=== PATIENT | female | born 1965 | race Caucasian/White ===

== ENCOUNTER → 2023-12-18 18:16 | Outpatient (REF) | payer BC, SELFPAY | LOC: MRI 18:16 | PROVIDERS: ATTENDING PHYSICIAN Internal Medicine Hematology & Oncology; FAMILY PHYSICIAN Internal Medicine | DX: D68.9 Coagulation defect, unspecified (principal); C80.0 Disseminated malignant neoplasm, unspecified; D53.9 Nutritional anemia, unspecified; R97.8 Other abnormal tumor markers | CPT/HCPCS: 70553; A9575 ==

== ENCOUNTER → 2024-01-01 18:09 | Outpatient (REF) | payer BC, SELFPAY | LOC: PAVMRI 18:09 | PROVIDERS: ATTENDING PHYSICIAN Specialist; FAMILY PHYSICIAN Internal Medicine | DX: M54.12 Radiculopathy, cervical region (principal) | CPT/HCPCS: 72141 ==

== ENCOUNTER → 2024-04-29 08:45 | Outpatient (REF) | payer BC, SELFPAY | LOC: HWWDC 08:45 | PROVIDERS: ATTENDING PHYSICIAN Internal Medicine | DX: Z12.31 Encounter for screening mammogram for malignant neoplasm of breast (principal) | CPT/HCPCS: 77063; 77067 ==

== ENCOUNTER → 2024-05-05 08:12 | Outpatient (REF) | payer BC, SELFPAY | LOC: RCS 08:12 | PROVIDERS: ATTENDING PHYSICIAN Internal Medicine | DX: R03.0 Elevated blood-pressure reading, without diagnosis of hypertension (principal); R00.2 Palpitations | CPT/HCPCS: 93225; 93226 ==

== ENCOUNTER → 2024-05-15 09:52 | Outpatient (REF) | payer BC, SELFPAY | LOC: HWRAD 09:52 | PROVIDERS: ATTENDING PHYSICIAN Internal Medicine Hematology & Oncology; FAMILY PHYSICIAN Internal Medicine | DX: E83.50 Unspecified disorder of calcium metabolism (principal); R97.8 Other abnormal tumor markers; D53.9 Nutritional anemia, unspecified; C80.0 Disseminated malignant neoplasm, unspecified; C34.11 Malignant neoplasm of upper lobe, right bronchus or lung; R11.0 Nausea; E86.0 Dehydration; D68.9 Coagulation defect, unspecified | CPT/HCPCS: 70491; 71260; 74177; Q9967 ==

== ENCOUNTER → 2024-05-29 07:16 | Outpatient (REF) | payer BC, SELFPAY | LOC: HWRCS 07:16 | PROVIDERS: ATTENDING PHYSICIAN Internal Medicine | DX: Z12.39 Encounter for other screening for malignant neoplasm of breast (principal) | CPT/HCPCS: 93306 ==

== ENCOUNTER → 2024-09-08 09:08 | Outpatient (REF) | payer BC, SELFPAY | LOC: HWRAD 09:08 | PROVIDERS: ATTENDING PHYSICIAN Internal Medicine Hematology & Oncology; FAMILY PHYSICIAN Internal Medicine | DX: E83.50 Unspecified disorder of calcium metabolism (principal); R97.8 Other abnormal tumor markers; D53.9 Nutritional anemia, unspecified; C80.0 Disseminated malignant neoplasm, unspecified; D68.9 Coagulation defect, unspecified; C34.11 Malignant neoplasm of upper lobe, right bronchus or lung; R11.0 Nausea; E86.0 Dehydration | CPT/HCPCS: 70491; 71260; 74177; Q9967 ==

== ENCOUNTER → 2024-12-18 07:15 | Outpatient (REF) | payer BC, SELFPAY | LOC: RAD 07:15 | PROVIDERS: ATTENDING PHYSICIAN Internal Medicine Hematology & Oncology; FAMILY PHYSICIAN Internal Medicine; REFERRING PHYSICIAN Internal Medicine Hematology & Oncology | DX: C80.0 Disseminated malignant neoplasm, unspecified (principal); D53.9 Nutritional anemia, unspecified; D68.9 Coagulation defect, unspecified; E83.50 Unspecified disorder of calcium metabolism; R97.8 Other abnormal tumor markers; C34.11 Malignant neoplasm of upper lobe, right bronchus or lung; E86.0 Dehydration; R11.0 Nausea | CPT/HCPCS: 70491; 71260; 74177; Q9967 ==

== ENCOUNTER → 2024-12-25 17:03 | Outpatient (REF) | payer BC, SELFPAY | LOC: MRI 17:03 | PROVIDERS: ATTENDING PHYSICIAN Internal Medicine Hematology & Oncology; FAMILY PHYSICIAN Internal Medicine | DX: C34.11 Malignant neoplasm of upper lobe, right bronchus or lung (principal) | CPT/HCPCS: 70553; A9575 ==

== ENCOUNTER → 2025-01-08 07:10 | Outpatient (REF) | payer BC, SELFPAY | LOC: RCS 07:10 | PROVIDERS: ATTENDING PHYSICIAN Internal Medicine Cardiovascular Disease; FAMILY PHYSICIAN Internal Medicine | DX: R00.2 Palpitations (principal) | CPT/HCPCS: 93306; 93356 ==

== ENCOUNTER → 2025-02-26 12:39 | Outpatient (REF) | payer BC, SELFPAY | LOC: PET 12:39 | PROVIDERS: ATTENDING PHYSICIAN Internal Medicine Hematology & Oncology | DX: C34.11 Malignant neoplasm of upper lobe, right bronchus or lung (principal) | CPT/HCPCS: 78815; A9552 ==

== ENCOUNTER → 2025-04-30 08:44 | Outpatient (REF) | payer BC, SELFPAY | LOC: RAD 08:44 | PROVIDERS: ATTENDING PHYSICIAN Internal Medicine Hematology & Oncology; FAMILY PHYSICIAN Internal Medicine | DX: C34.90 Malignant neoplasm of unspecified part of unspecified bronchus or lung (principal); C77.0 Secondary and unspecified malignant neoplasm of lymph nodes of head, face and neck | CPT/HCPCS: 70492; 71270; 74178; Q9967 ==

== ENCOUNTER → 2025-05-05 16:48 | Outpatient (REF) | payer BC, SELFPAY | LOC: MRI 3T 16:48 | PROVIDERS: ATTENDING PHYSICIAN Internal Medicine Hematology & Oncology; FAMILY PHYSICIAN Internal Medicine | DX: C34.90 Malignant neoplasm of unspecified part of unspecified bronchus or lung (principal); R97.8 Other abnormal tumor markers; C34.11 Malignant neoplasm of upper lobe, right bronchus or lung; C77.0 Secondary and unspecified malignant neoplasm of lymph nodes of head, face and neck; N63.21 Unspecified lump in the left breast, upper outer quadrant | CPT/HCPCS: 76642; 77049; 77062; 77066; A9585 ==

== ENCOUNTER → 2025-05-21 11:35 | Outpatient (REF) | payer BC, SELFPAY | LOC: MRI 3T 11:35 | PROVIDERS: ATTENDING PHYSICIAN Internal Medicine Hematology & Oncology; FAMILY PHYSICIAN Internal Medicine | DX: C34.11 Malignant neoplasm of upper lobe, right bronchus or lung (principal); R97.8 Other abnormal tumor markers; D53.9 Nutritional anemia, unspecified; C80.0 Disseminated malignant neoplasm, unspecified; D68.9 Coagulation defect, unspecified; E83.50 Unspecified disorder of calcium metabolism; R11.0 Nausea; E86.0 Dehydration; C34.90 Malignant neoplasm of unspecified part of unspecified bronchus or lung; C77.0 Secondary and unspecified malignant neoplasm of lymph nodes of head, face and neck | CPT/HCPCS: 70553; A9575 ==

== ENCOUNTER → 2025-07-14 08:16 | Outpatient (REF) | payer BC, SELFPAY | LOC: RCS 08:16 | PROVIDERS: ATTENDING PHYSICIAN Physician Assistant; FAMILY PHYSICIAN Internal Medicine | DX: I47.11 Inappropriate sinus tachycardia, so stated (principal); I10 Essential (primary) hypertension; I35.1 Nonrheumatic aortic (valve) insufficiency; R93.1 Abnormal findings on diagnostic imaging of heart and coronary circulation | CPT/HCPCS: 93017; 93350 ==

== ENCOUNTER → 2025-08-27 09:03 | Outpatient (REF) | payer BC, SELFPAY ==
[2025-08-27 09:34] LABS: Glucose 96 mg/dl (70-99)
== END ==
LOC: PET 09:03
PROVIDERS: ATTENDING PHYSICIAN Internal Medicine Hematology & Oncology
DX: C34.11 Malignant neoplasm of upper lobe, right bronchus or lung (principal); D68.9 Coagulation defect, unspecified; D53.9 Nutritional anemia, unspecified; R97.8 Other abnormal tumor markers; E83.50 Unspecified disorder of calcium metabolism; R11.0 Nausea
CPT/HCPCS: 36415; 82947

== ENCOUNTER 2025-11-08 06:30 | Day surgery (SDC) | payer BC, SELFPAY | END 2025-11-08 11:29 | disposition home or self-care (01) | LOC: GI 06:30 | PROVIDERS: ATTENDING PHYSICIAN Internal Medicine; FAMILY PHYSICIAN Internal Medicine | DX: Z12.11 Encounter for screening for malignant neoplasm of colon (principal); K56.2 Volvulus; K62.89 Other specified diseases of anus and rectum; Z86.0101 Personal history of adenomatous and serrated colon polyps | CPT/HCPCS: G0105 ==